=== PATIENT | male | born 1980 ===

== ENCOUNTER 2016-05-28 22:10 | Observation (INO) | payer SELFPAY ==
[2016-05-28 22:18] VITALS: TEMP 98
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
[2016-05-28 23:40] LABS: BASO # 0.1 K/uL (0.0-0.2); BASO % 0.7 % (0.0-2.0); EOS # 0.3 K/uL (0.0-0.7); EOS % 4.4 % (0.0-4.0); HEMATOCRIT 46.3 % (35.0-51.0); LYMPH # 2.2 K/uL (1.0-4.3); LYMPH % 31.3 % (20.0-40.0); MEAN CELL VOLUME 86.5 fl (80.0-94.0); MEAN CORPUSCULAR HEMOGLOBIN 28.9 pg (27.0-31.0); MEAN CORPUSCULAR HGB CONC 33.4 g/dL (33.0-37.0); MONO # 0.4 K/uL (0.0-0.8); MONO % 5.1 % (0.0-10.0); NEUT # 4.1 K/uL (1.8-7.0); NEUT % 58.5 % (50.0-75.0); NRBC % 0.1 % (0.0-0.0); RED CELL DISTRIBUTION WIDTH 13.6 % (11.5-14.5)
[2016-05-28 23:50] LABS: ALCOHOL SERUM 243 mg/dl (0-10); BLOOD UREA NITROGEN 14 mg/dl (9-20); CALCIUM 9.4 mg/dL (8.4-10.2); CARBON DIOXIDE 23 mmol/L (22-30); CHLORIDE 109 mmol/L (98-107); GFR AFRICAN-AMERICAN > 60; GLUCOSE,RANDOM 125 mg/dL (75-110); POTASSIUM 4.1 MMOL/L (3.6-5.0); SODIUM 152 mmol/l (132-148)
[2016-05-29 00:09] LABS: PARTIAL THROMBOPLASTIN TIME 25.8 SECONDS (23.3-32.5)
[2016-05-29] MEDS ORDERED: Sodium Chloride 0.9% 50 ML IV ONE (00:14)
[2016-05-29] MEDS ORDERED: Iohexol 350 MG/100 ML VIAL ONE (00:14)
[2016-05-29 01:49] LABS: URINE BILIRUBIN NEGATIVE (NEGATIVE); URINE BLOOD NEGATIVE (NEGATIVE); URINE COLOR STRAW (YELLOW); URINE GLUCOSE (UA) NEG (Normal); URINE KETONE NEGATIVE (NEGATIVE); URINE LEUKOCYTE ESTERASE NEG Leu/uL (Negative); URINE PROTEIN NEGATIVE (NEGATIVE); URINE UROBILINOGEN 0.2-1.0 mg/dL (0.2-1.0); WBC URINE < 1 /hpf (0-5)
[2016-05-29 03:24] VITALS: BP 129/78; PULSE 79; RESP 14
[2016-05-29 06:33] VITALS: O2SAT 99
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
--- NOTE | 2016-05-29 10:11 | RAD ---
PROCEDURE: Left Knee Radiographs. HISTORY: COMPARISON: None available. FINDINGS: BONES: No acute displaced fracture. JOINTS: No dislocation. JOINT EFFUSION: Small suprapatellar joint effusion. OTHER FINDINGS: None. IMPRESSION: Small suprapatellar joint effusion. No acute displaced fracture or dislocation identified. If symptoms persist, or if there is continued clinical concern, x-ray follow-up in 7-10 days should be considered.
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
== END 2016-05-29 06:32 | disposition home or self-care (01) ==
LOC: H.ER 22:10 → H.EROBSV 23:33
PROVIDERS: ADMIT Emergency Medicine; ATTEND Emergency Medicine
DX: F10.129 Alcohol abuse with intoxication, unspecified (principal); S89.92XA Unspecified injury of left lower leg, initial encounter; S79.912A Unspecified injury of left hip, initial encounter; S09.90XA Unspecified injury of head, initial encounter; V03.90XA Pedestrian on foot injured in collision with car, pick-up truck or van, unspecified whether traffic or nontraffic accident, initial encounter; Y93.01 Activity, walking, marching and hiking; Y99.9 Unspecified external cause status; Y92.410 Unspecified street and highway as the place of occurrence of the external cause
CPT/HCPCS: 70450; 71010; 71260; 72125; 73562; 74177; 80048; 81003; 85025; 85610; 85730; 86850; 86900; 96374; 99283; G0378; G0480; J2270; Q9967